=== PATIENT | female | born 1960 | race African-American/Black ===

== ENCOUNTER 2018-08-20 18:08 | Emergency (ER) | payer MEDICAID ==
[~2018-08-20] VITALS: Ht 149.9 cm; Wt 55.3 kg
[~2018-08-20 18:08] MED LIST: AMLO5TAB13 PO; CALC1TAB78 PO; CYA100I PO; DIVA500T59 PO; FERR-20 PO; OXCA600T3 PO; PHEN32.49 PO
[2018-08-20 18:19] VITALS: BP 138/68
[2018-08-20] MEDS ORDERED: PHENobarbital 32.4 MG TAB PO ONE (21:30)
== END 2018-08-20 22:29 | disposition home or self-care (01) ==
LOC: ER 18:14
DX: G40.909 Epilepsy, unspecified, not intractable, without status epilepticus (principal); I10 Essential (primary) hypertension; Z76.0 Encounter for issue of repeat prescription; Z79.899 Other long term (current) drug therapy

== ENCOUNTER 2018-09-25 07:32 | Emergency (ER) | payer MEDICAID ==
[~2018-09-25] VITALS: Ht 149.9 cm; Wt 55.3 kg
[2018-09-25 07:47] VITALS: BP 157/72
== END 2018-09-25 08:19 | disposition home or self-care (01) ==
LOC: ER 07:32
DX: G40.909 Epilepsy, unspecified, not intractable, without status epilepticus (principal); I10 Essential (primary) hypertension; D64.9 Anemia, unspecified; Z76.0 Encounter for issue of repeat prescription; Z79.899 Other long term (current) drug therapy